=== PATIENT | male | born 1970 | race Caucasian/White ===

== ENCOUNTER 2016-12-06 19:17 | Emergency (ER) | payer MEDICAID ==
--- NOTE | 2016-12-06 19:35 | Emergency Department Record ---
History of Present Illness - General Chief Complaint: Alcohol Intoxication Stated Complaint: INTOXICATED Time Seen by Provider: 12/06/16 19:29 Source: Patient Mode of Arrival: EMS Limitations: No limitations - History of Present Illness Initial Comments: The patient is here due to being found very intoxicated at home due to excessively drinking alcohol. He denies any fall or injury. The patient states he does have chronic back pain but denies any new symptoms from it. Per EMS the patient had no one to watch him so they brought him to the ER. MD Complaint: Alcohol intoxication Last Drink: Unknown Associated Symptoms: Denies other symptoms - [place] Coma Scale Eye Response: (4) Open spontaneously Motor Response: (6) Obeys commands Verbal Response: (5) Oriented [place] Total: 15 - Related Data Allergies Allergy/AdvReac Type Severity Reaction Status Date / Time naproxen Allergy Intermediate ABDOMINAL Verified 12/06/16 19:23 PAIN Travel Screening - Travel/Exposure Within Last 30 Days Have you traveled within the last 30 days?: No - Travel Symptoms Symptom Screening: None Review of Systems Constitutional: Denies: Chills, Fever Eyes: Denies: Eye discharge ENT: Denies: Congestion Respiratory: Denies: Cough, Dyspnea Past Medical History - SOCIAL HISTORY Smoking Status: Current every day smoker - RESPIRATORY Hx Respiratory Disorders: No - CARDIOVASCULAR Hx Cardio Disorders: No - NEURO Hx Neuro Disorders: Yes Hx Headaches: Yes (migraines) - GI Hx GI Disorders: No - Hx Genitourinary Disorders: No - ENDOCRINE Hx Endocrine Disorders: No - MUSCULOSKELETAL Hx Musculoskeletal Disorders: Yes Hx Back Injury: Yes (2013) - PSYCH Hx Psych Problems: Yes Hx Anxiety: Yes Hx Depression: Yes - HEMATOLOGY/ONCOLOGY Hx Hematology/Oncology Disorders: No Family Medical History Any Significant Family History?: Yes Hx Diabetes: Mother Physical Exam - General General Appearance: Alert, Cooperative, No acute distress - Head Head exam: Atraumatic, Normocephalic - Eye Eye exam: Normal appearance, PERRL - Neck Neck exam: Normal inspection, Full ROM. negative: Tenderness - Respiratory Respiratory exam: Normal lung sounds bilaterally. negative: Respiratory distress - Cardiovascular Cardiovascular Exam: Regular rate, Normal rhythm, Normal heart sounds - GI/Abdominal GI/Abdominal exam: Soft, Normal bowel sounds. negative: Tenderness - Extremities Extremities exam: Normal inspection, Full ROM, Normal capillary refill. negative: Tenderness - Back Back exam: Reports: Normal inspection. Denies: Paraspinal tenderness, Vertebral tenderness - Neurological Neurological exam: Alert. negative: Motor sensory deficit - Psychiatric Psychiatric exam: negative: Anxious, Depressed Course Vital Signs 12/06/16 19:24 Temperature 98.6 F Pulse Rate 106 H Respiratory 14 Rate Blood Pressure 110/80 Pulse Ox 87 L - Reevaluation(s) Reevaluation #1: The patient's mother now is in the room. She states she was told by neighbors that the patient did fall down the stairs. The patient denies that issue and denies any back pain, neck pain, DRIVER, CP, SOB, or AP. He now is up walking with a steady gait but does still have mildly slurred speech. Due to hx of falling down the stairs possibly and his intoxication we will order xrays of his head and neck. 12/06/16 21:26 Reevaluation #2: The patient is doing very well at this time. His speech is clear and his gait steady. He has been to the bathroom multiple times with no problems or ataxia. The patient is adamant that he did not fall down the stairs and denies any injuries. Even though he is still intoxicated he does appear stable for discharge. He has no CP, SOB, or AP and has no abdominal, back or neck tenderness. His RA biox is 95%. His mother is here to take him home and watch him. 12/06/16 22:18 12/06/16 22:20 12/06/16 22:42 Medical Decision Making - Data Complexity MDM Data: Labs Ordered and/or Reviewed, X-Ray Ordered and/or Reviewed - Lab Data Result diagrams: 12/06/16 19:36 12/06/16 19:36 - Radiology Data Radiology results: Report reviewed (Head CT: Neg Cervical CT: No acute changes, DJD Dz multiple levels.) Disposition Disposition: Discharge Clinical Impression: Alcohol intoxication Qualifiers: Complication of substance-induced condition: uncomplicated Qualified Code(s): F10.920 - Alcohol use, unspecified with intoxication, uncomplicated Disposition: Home, Self-Care Condition: (1) Good Instructions: Alcohol Intoxication (ED) Additional Instructions: Please decrease your alcohol consumption. Please see your PCP for any problems on Thursday. Return to the ER for any issues. Forms: Patient Portal Access Quality - Quality Measures Quality Measures: N/A - Blood Pressure Screening View Details: Yes Does Patient Have Any of the Following: No Blood Pressure Classification: Pre-Hypertensive BP Reading Systolic Measurement: 110 Diastolic Measurement: 80 Screening for High Blood Pressure: < Pre-Hypertensive BP, F/U Documented > [ [id number]] Pre-Hypertensive Follow-up Interventions: Referral to alternative/primary care provider.
[2016-12-06 19:45] LABS: BASO % 0.8 % (0-6); EOS % 2.9 % (0-6); GRAN % 55.6 % (47-80); HEMATOCRIT 42.8 % (42.0-52.0); HEMOGLOBIN 15.2 gm/dl (14.0-18.0); LYMPH % 32.6 % (16-45); MEAN CORPUSCULAR HEMOGLOBIN 30.9 pg (27-33); MEAN CORPUSCULAR HGB CONC 35.5 g/dl (32-36); MEAN PLATELET VOLUME 9.3 fl (7.4-10.4); MONO % 8.1 % (0-9); PLATELET COUNT 294 K/uL (130-400); RED BLOOD COUNT 4.92 M/uL (4.40-5.70); RED CELL DISTRIBUTION WIDTH 13.3 % (11.5-14.5); WHITE BLOOD COUNT W/O DIFF 8.9 K/uL (4.2-12.2)
[2016-12-06 19:56] LABS: ALB/GLOB RATIO 1.5 (1.1-1.8); ALKALINE PHOSPHATASE 87 U/L (38-126); ALT/SGPT 58 U/L (21-72); ANION GAP 9.6 (7-16); AST/SGOT 33 U/L (17-59); BILIRUBIN,TOTAL 0.39 mg/dL (0.2-1.3); BLOOD UREA NITROGEN 12 mg/dL (9-20); CARBON DIOXIDE 24.4 mmol/L (22-30); EST GLOMERULAR FILTRATION RATE > 60 ml/min; GLUCOSE,RANDOM 107 mg/dL (70-110); TOTAL PROTEIN 6.6 gm/dL (6.3-8.2)
[2016-12-06 19:58] LABS: ALCOHOL 0.287 g/dL (0-0.010)
--- NOTE | 2016-12-08 21:06 | CT SCAN REPORT ---
EXAM: CT SCAN HEAD WO CONTRAST HISTORY: ALCOHOL INTOXICATION, TRAUMA. TECHNIQUE: Routine noncontrast CT examination of the head is performed. COMPARISON: No prior imaging of the head available for comparison. Same-day noncontrast CT examination of the cervical spine. FINDINGS: The ventricles and subarachnoid spaces are normal in size. No area of abnormally increased or decreased attenuation is noted throughout the brain substance. No abnormal extraaxial fluid collection is seen, nor is there skull fracture. The maxillary sinuses are hypoplastic. Mild mucosal thickening is demonstrated within the maxillary sinuses, inferior left frontal sinus, and a few bilateral ethmoid air cells. The visualized paranasal sinuses and mastoid air cells are otherwise clear. The orbits, as visualized, are unremarkable. IMPRESSION: 1. NO CT EVIDENCE OF AN INTRACRANIAL ABNORMALITY NOR SKULL FRACTURE. 2. MUCOSAL THICKENING IN THE MAXILLARY SINUSES, A FEW ETHMOID AIR CELLS, AND THE INFERIOR ASPECT OF THE LEFT FRONTAL SINUS. JOB NUMBER: [id number] [facility]TD[facility]
--- NOTE | 2016-12-08 21:35 | CT SCAN REPORT ---
EXAM: CT SCAN CERVICAL SPINE WO CONTRAST HISTORY: TRAUMA, ALCOHOL INTOXICATION. TECHNIQUE: Thin-collimation helical CT examination of the cervical spine is performed without intravenous contrast. Coronal and sagittal reformatted images are generated and reviewed. COMPARISON: No prior imaging of the cervical spine available for comparison. Same-day noncontrast CT head examination. FINDINGS: There is normal bone mineralization. No acute fracture, destructive bone lesion, or prevertebral soft tissue swelling is seen. There is straightening of the normal cervical lordosis. The vertebral bodies are otherwise normal in alignment and height. There is partial fusion of the C2 and C3 vertebrae, primarily on the right, with a rudimentary disc present. There is mild to moderate disc space narrowing at the C4-C5 level with marginal endplate spurring. 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 The intervertebral discs are otherwise maintained. Mild hypertrophic changes of the acromioclavicular joint. 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 There is broad-based posterior disc bulging with possible small superimposed disc protrusion at the C3-C4 level and, in association with congenital canal narrowing, causes mild to moderate central canal stenosis with the AP diameter in the midline measuring 6.4 mm. Posterior disc bulging and endplate spurring at the C4-C5 level also identified causing ventral sac flattening and, in association with congenital canal narrowing, causes mild to moderate central canal stenosis with the AP diameter in the midline measuring 6 mm. No other gross posterior disc bulging or disc protrusion and no other gross central canal stenosis. Mild to moderate facet arthropathy is noted bilaterally at the C5-C6 level. Spurring at these levels appears to cause mild neural foraminal narrowing. There is also left neural foraminal narrowing at the C4-C5 level, primarily due to uncovertebral joint spurring. No cervical mass nor adenopathy is seen. IMPRESSION: 1. STRAIGHTENING OF THE NORMAL CERVICAL LORDOSIS, LIKELY DUE TO POSITIONING OR MUSCLE SPASM. 2. NO ACUTE FRACTURE, SUBLUXATION, OR PREVERTEBRAL SOFT TISSUE SWELLING. 3. PARTIAL FUSION OF C2 AND C3 WITH A RUDIMENTARY DISC AT THIS LEVEL. 4. 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 5. MILD BILATERAL NEURAL FORAMINAL NARROWING AT THE C5-C6 LEVEL DUE TO FACET ARTHROPATHY AND MILD LEFT NEURAL FORAMINAL NARROWING AT THE C4-C5 LEVEL DUE TO UNCOVERTEBRAL JOINT SPURRING. JOB NUMBER: [id number] [facility]
== END 2016-12-06 22:28 | disposition home or self-care (01) ==
LOC: ER 19:17
DX: Z04.3 Encounter for examination and observation following other accident (principal); F10.120 Alcohol abuse with intoxication, uncomplicated; M54.9 Dorsalgia, unspecified; G89.29 Other chronic pain; Y90.8 Blood alcohol level of 240 mg/100 ml or more; W10.9XXA Fall (on) (from) unspecified stairs and steps, initial encounter; Y92.039 Unspecified place in apartment as the place of occurrence of the external cause
CPT/HCPCS: 99283; 99284; 85025; 80053; 72125; 70450; G0480; 80320